=== PATIENT | female | born 1975 | race Caucasian/White ===

== ENCOUNTER 2025-08-15 18:41 | Outpatient (CLI) | payer BC, SELFPAY ==
[2025-08-17 22:44] LABS: HPV Source Cervix
[2025-08-20 16:22] LABS: Pap Test Digital Imaging Done
== END 2025-08-15 18:42 | disposition home or self-care (01) ==
PROVIDERS: PCP Family Medicine; Visit Provider Physician Assistant
DX: Z12.4 Encounter for screening for malignant neoplasm of cervix (principal)
CPT/HCPCS: 87624; 87625; 88141; 88142; 88175